=== PATIENT | female | born 1975 | race Two or more races ===

== ENCOUNTER → 2017-12-02 | Outpatient (CLI) | payer BC ==
[2017-12-02 08:29] LABS: Basophils # (auto) 0.1 uL; Basophils % (auto) 1.2 % (0.0-2.0); Eosinophils # (auto) 0.1 uL; Eosinophils % (auto) 2.9 % (0.0-7.0); Hematocrit 39.3 % (36.0-46.0); Hemoglobin 12.9 g/dL (12.2-16.2); Lymphocytes # (auto) 1.7 uL; Mean Corpuscular Hgb Conc. 32.8 g/dL (32.0-36.0); Mean Corpuscular Volume 85.2 fL (80.0-100.0); Monocytes # (auto) 0.4 uL; Monocytes % (auto) 8.6 % (0.0-12.0); Neutrophils # (auto) 2.7 uL; Neutrophils % (auto) 53.3 % (37.0-80.0); Nucleated Red Blood Cells % 0.8 %; Platelet Count (auto) 348 10^3/uL (140-450); Red Blood Cells 4.61 10^6/uL (4.0-5.20); White Blood Cell 5.1 10^3/uL (4.4-10.8)
[2017-12-02 08:56] LABS: Albumin 3.7 g/dL (3.4-5.0); BUN/Creatinine Ratio 19.4; Bilirubin, Total 0.3 mg/dL (0.2-1.0); Calcium 8.6 mg/dL (8.5-10.1); Total Protein 7.8 g/dL (6.4-8.2)
== END | disposition home or self-care (01) ==
LOC: LAB 07:44
PROVIDERS: ATTEND Physician Assistant
DX: Z00.01 Encounter for general adult medical examination with abnormal findings (principal); N93.9 Abnormal uterine and vaginal bleeding, unspecified; K58.9 Irritable bowel syndrome, unspecified; R00.2 Palpitations; D50.9 Iron deficiency anemia, unspecified; E78.00 Pure hypercholesterolemia, unspecified; I10 Essential (primary) hypertension
CPT/HCPCS: 36415; 80053; 80061; 84443; 85025

== ENCOUNTER → 2020-01-12 | Outpatient (CLI) | payer OTHER | END | disposition home or self-care (01) | LOC: LAB 12:04 | PROVIDERS: ATTEND Nurse Practitioner Family | DX: Z20.828 Contact with and (suspected) exposure to other viral communicable diseases (principal) ==

== ENCOUNTER → 2020-02-23 | Outpatient (CLI) | payer BC ==
[2020-02-23 11:13] LABS: Basophils # (auto) 0.1 10 ^3/uL (0-0.2); Basophils % (auto) 0.9 % (0.0-2.0); Eosinophils # (auto) 0.2 10 ^3/uL (0-0.8); Eosinophils % (auto) 2.5 % (0.0-7.0); Hemoglobin 12.3 g/dL (12.2-16.2); Lymphocytes # (auto) 1.7 10 ^3/uL (0.4-5.4); Lymphocytes % (auto) 24.3 % (10.0-50.0); Mean Corpuscular Hemoglobin 28.2 pg (28.0-32.0); Mean Corpuscular Hgb Conc. 33.4 g/dL (32.0-36.0); Mean Corpuscular Volume 84.5 fL (80.0-100.0); Monocytes # (auto) 0.5 10 ^3/uL (0-1.3); Monocytes % (auto) 7.7 % (0.0-12.0); Neutrophils # (auto) 4.4 10 ^3/uL (1.6-8.6); Neutrophils % (auto) 64.6 % (37.0-80.0); Platelet Count (auto) 395 10^3/uL (140-450); Red Blood Cells 4.38 10^6/uL (4.0-5.20); White Blood Cell 6.9 10^3/uL (4.4-10.8)
[2020-02-23 11:47] LABS: Follicle Stimulating Hormone 21.64 IU/L (SEE BELOW); Leuteinizing Hormone 51.2 IU/L
== END | disposition home or self-care (01) ==
LOC: LAB 10:56
PROVIDERS: ATTEND Obstetrics & Gynecology
DX: N92.0 Excessive and frequent menstruation with regular cycle (principal)
CPT/HCPCS: 36415; 82670; 83001; 83002; 84403; 84443; 85025

== ENCOUNTER → 2020-07-02 | Outpatient (CLI) | payer OTHER | END | disposition home or self-care (01) | LOC: LAB 07:01 | PROVIDERS: ATTEND Physician Assistant | DX: Z20.822 Contact with and (suspected) exposure to COVID-19 (principal) | CPT/HCPCS: C9803; U0003 ==

== ENCOUNTER → 2021-05-24 | Day surgery (SDC) | payer BC ==
[2021-05-21 10:10] LABS: Urine Bacteria NONE SEEN /hpf (None Seen); Urine Blood TRACE /uL (Negative); Urine Mucus FEW (None Seen); Urine Specific Gravity 1.026 (1.001-1.035); Urine WBC 3 /hpf (0 - 5)
[2021-05-21 10:17] LABS: Albumin 3.5 g/dL (3.4-5.0); Potassium 4.2 mmol/L (3.5-5.1)
[2021-05-21 10:19] LABS: Basophils # (auto) 0.1 10 ^3/uL (0-0.2); Basophils % (auto) 1.2 % (0.0-2.0); Eosinophils # (auto) 0.2 10 ^3/uL (0-0.8); Hematocrit 37.8 % (36.0-46.0); Hemoglobin 12.9 g/dL (12.2-16.2); Lymphocytes # (auto) 1.4 10 ^3/uL (0.4-5.4); Lymphocytes % (auto) 24.8 % (10.0-50.0); Mean Corpuscular Hemoglobin 28.6 pg (28.0-32.0); Mean Corpuscular Hgb Conc. 34.1 g/dL (32.0-36.0); Mean Corpuscular Volume 83.7 fL (80.0-100.0); Monocytes # (auto) 0.4 10 ^3/uL (0-1.3); Monocytes % (auto) 7.5 % (0.0-12.0); Neutrophils # (auto) 3.7 10 ^3/uL (1.6-8.6); Neutrophils % (auto) 63.5 % (37.0-80.0); Red Blood Cells 4.52 10^6/uL (4.0-5.20); White Blood Cell 5.8 10^3/uL (4.4-10.8)
[2021-05-21 10:20] LABS: Bilirubin, Total 0.2 mg/dL (0.2-1.0); Calcium 8.5 mg/dL (8.5-10.1); Total Protein 7.8 g/dL (6.4-8.2)
[2021-05-21 10:53] LABS: INR 1.01 (0.9-1.15); Partial Thromboplastin Time 27.9 sec (23.6-33.0)
[~2021-05-24] VITALS: Ht 157.5 cm; Wt 77.1 kg
[~2021-05-24] MED LIST: CLINDAMYCIN 600MG IV 50 ML IV ONE; DexAMETHasone SOD PHOS 10MG/1ML VIAL INJ ONE; GLYCOPYRROLATE 0.2 MG/ML 1ML VIAL ONE; HYDROmorphone HCL 2 MG/ML VL IV PRN; KETOROLAC TROMETH 30 MG/ML 1ML VIAL ONE; LACTATED RINGER'S 1,000 ML IV SCH; LIDOCAINE 2% (LOCAL ANESTH.) PF 5ml SDV ONE; MEPERIDINE HCL (25 MG/ML) 1ML VIAL ONE; MIDAZOLAM HCL 2MG/2ML 2ml VIAL (1mg/ml) ONE; ONDANSETRON HCL 4 MG/2 ML VIAL IV PRN; ONDANSETRON HCL 4 MG/2 ML VIAL ONE; PROPOFOL 10 MG/ML 20 ML IV ONE; fentaNYL CITRATE 100 MCG/2 ML VL ONE
[2021-05-24 10:40] VITALS: BP 103/67
== END | disposition home or self-care (01) ==
LOC: SUR 07:25
PROVIDERS: ATTEND Obstetrics & Gynecology
DX: N93.9 Abnormal uterine and vaginal bleeding, unspecified (principal); Z90.49 Acquired absence of other specified parts of digestive tract; Z20.822 Contact with and (suspected) exposure to COVID-19
CPT/HCPCS: 36415; 58563; 80053; 81001; 81025; 84702; 85025; 85610; 85730; 86850; 86900; 86901; 86920; J1100; J1885; J2001; J2175; J2250; J2405; J2704; J3010; J3490; U0003

== ENCOUNTER 2021-12-28 12:45 | Emergency (ER) | payer BC ==
[~2021-12-28] VITALS: Ht 157.5 cm; Wt 77.1 kg
[2021-12-28 12:53] VITALS: BP 136/87
[2021-12-28] MEDS ORDERED: ASPirin 81 mg TAB PO ONE (13:15)
[2021-12-28] MEDS ORDERED: NITROGLYCERIN 0.4 MG SL TAB SL ONE (13:15)
[2021-12-28 13:44] LABS: Basophils # (auto) 0.1 10 ^3/uL (0-0.2); Basophils % (auto) 0.9 % (0.0-2.0); Eosinophils # (auto) 0.2 10 ^3/uL (0-0.8); Eosinophils % (auto) 2.5 % (0.0-7.0); Hematocrit 39.5 % (36.0-46.0); Hemoglobin 13.2 g/dL (12.2-16.2); Lymphocytes # (auto) 1.7 10 ^3/uL (0.4-5.4); Lymphocytes % (auto) 27.5 % (10.0-50.0); Mean Corpuscular Hgb Conc. 33.4 g/dL (32.0-36.0); Mean Corpuscular Volume 83.8 fL (80.0-100.0); Monocytes # (auto) 0.5 10 ^3/uL (0-1.3); Monocytes % (auto) 8.7 % (0.0-12.0); Neutrophils # (auto) 3.8 10 ^3/uL (1.6-8.6); Neutrophils % (auto) 60.4 % (37.0-80.0); Red Blood Cells 4.71 10^6/uL (4.0-5.20); Red Cell Distribution Width 14.6 % (11.8-14.3); White Blood Cell 6.3 10^3/uL (4.4-10.8)
[2021-12-28 14:05] LABS: Calcium 8.7 mg/dL (8.5-10.1); Potassium 3.7 mmol/L (3.5-5.1)
[2021-12-28 14:07] LABS: BUN/Creatinine Ratio 16.2
[2021-12-28 14:10] LABS: Bilirubin, Total 0.3 mg/dL (0.2-1.0); Total Protein 8.1 g/dL (6.4-8.2)
== END 2021-12-28 19:28 | disposition left against medical advice (07) ==
LOC: ER 12:45
DX: R07.89 Other chest pain (principal); Z88.1 Allergy status to other antibiotic agents; Z53.29 Procedure and treatment not carried out because of patient's decision for other reasons
CPT/HCPCS: 36415; 71045; 80053; 84443; 84484; 85025; 93005

== ENCOUNTER → 2022-01-07 | Outpatient (CLI) | payer BC | END | disposition home or self-care (01) | LOC: XYW 08:31 | PROVIDERS: ATTEND Internal Medicine | DX: R07.89 Other chest pain (principal) | CPT/HCPCS: 78452; 93017; A9500 ==